=== PATIENT | female | born 1980 | race Caucasian/White ===

== ENCOUNTER 2019-11-06 05:15 | Day surgery (SDC) | payer OTHER ==
[2019-10-30 11:24] LABS: BASOPHILS % (AUTO) 0.4 % (0.0-2.0); EOSINOPHILS # (AUTO) 0.3 K/uL (0-0.4); EOSINOPHILS % (AUTO) 3.4 % (0.0-4.0); HEMATOCRIT 40.4 % (36-48); HEMOGLOBIN 13.3 g/dL (12.0-16.0); LYMPHOCYTES % (AUTO) 30.1 % (20.5-51.1); MEAN CORPUSCULAR HEMOGLOBIN 29 pg (27-31); MEAN CORPUSCULAR HGB CONC 33 g/dL (33-37); MEAN CORPUSCULAR VOLUME 87.2 fL (80-94); MONOCYTES # (AUTO) 0.7 K/uL (0.8-1.0); MONOCYTES % (AUTO) 7.1 % (1.7-9.3); NEUTROPHILS # (AUTO) 5.8 K/uL (1.8-7.7); PLATELET COUNT (AUTO) 270 K/uL (140-450); RED BLOOD CELL COUNT(AUTO) 4.64 MIL/uL (4.20-5.40); RED CELL DISTRIBUTION WIDTH 14.3 % (11.6-13.7); WHITE BLOOD COUNT (AUTO) 9.9 K/uL (4.8-10.8)
[2019-10-30 11:37] LABS: ALBUMIN 3.8 g/dL (3.4-5.0); ANION GAP 10.1 (8-16); CARBON DIOXIDE 30.7 mmol/L (21-32); CREATININE 0.7 mg/dL (0.6-1.3); POTASSIUM 3.8 mmol/L (3.5-5.1); TOTAL BILIRUBIN 0.3 mg/dL (0.0-1.0)
[~2019-11-06] VITALS: Ht 160 cm; Wt 154.2 kg
[2019-11-06] MEDS ORDERED: MIDAZOLAM 2 MG/2 ML VIAL ONE (07:20)
[2019-11-06] MEDS ORDERED: GLYCOPYRROLATE 0.2 MG/ML VIAL ONE (07:31)
[2019-11-06] MEDS ORDERED: SUCCINYLCHOLINE CHLORIDE 200 MG/10 ML VIAL IVP ONE (07:31)
[2019-11-06] MEDS ORDERED: DESFLURANE 240 ML BTL INH ONE (07:31)
[2019-11-06] MEDS ORDERED: DEXAMETHASONE 4 MG/ML VIAL ONE (07:31)
[2019-11-06] MEDS ORDERED: ROCURONIUM 50 MG/5 ML VIAL IV ONE (07:31)
[2019-11-06] MEDS ORDERED: METOPROLOL 5 MG/5 ML VIAL ONE (07:31)
[2019-11-06] MEDS ORDERED: NEOSTIGMINE 1:1000 10 MG/10 ML VIAL ONE (07:31)
[2019-11-06] MEDS ORDERED: PROPOFOL 200 MG/20 ML VIAL IV ONE (07:31)
[2019-11-06] MEDS ORDERED: ONDANSETRON 4 MG/2 ML VIAL ONE (07:31)
[2019-11-06] MEDS ORDERED: ESMOLOL 100 MG/10 ML VIAL IV ONE (07:31)
[2019-11-06] MEDS ORDERED: MEPERIDINE 25 MG/ML SYR IVP PRN (08:15)
[2019-11-06] MEDS ORDERED: BLOOD GLUCOSE MONITORING 1 DEV DEV FS SCH (08:15)
[2019-11-06] MEDS ORDERED: ONDANSETRON 4 MG/2 ML VIAL IVP PRN (08:15)
[2019-11-06] MEDS ORDERED: NACL 0.9% 1,000 ML IV SCH (08:15)
[2019-11-06] MEDS ORDERED: HYDROmorphone 1 MG/ML AMP IVP PRN (08:15)
[2019-11-06] MEDS: HYDROmorphone PFS 2 MG/ML SYR ONE ×2 (08:48→09:08)
== END 2019-11-06 10:40 | disposition home or self-care (01) ==
LOC: MDS 05:15 → MFCC 05:42 → MDS 10:40
PROVIDERS: ATTEND Obstetrics & Gynecology
DX: N92.0 Excessive and frequent menstruation with regular cycle (principal); J45.909 Unspecified asthma, uncomplicated; E03.9 Hypothyroidism, unspecified; L40.9 Psoriasis, unspecified; Z11.59 Encounter for screening for other viral diseases
CPT/HCPCS: 36415; 58563; 80053; 81025; 84702; 85025; J0330; J1100; J1170; J2250; J2405; J2704; J2710; J3490; J7030; U0003

== ENCOUNTER 2020-07-11 09:32 | Emergency (ER) | payer OTHER ==
[~2020-07-11] VITALS: Ht 175.3 cm; Wt 121.1 kg
[2020-07-11 09:42] VITALS: BP 153/83
--- NOTE | 2020-07-11 09:48 | NUR ---
PT AMBULATED TO BED 11.
--- NOTE | 2020-07-11 09:51 | NUR ---
PT AMBULATED TO RESTROOM WITH A STEADY GAIT, UNABLE TO PROVIDE UA SAMPLE AT THIS TIME.
--- NOTE | 2020-07-11 10:07 | NUR ---
DR. SUAREZ AT PT BEDSIDE FOR FURTHER EVALUATION.
[2020-07-11] MEDS ORDERED: NACL 0.9% 1,000 ML IV ONE (10:10)
--- NOTE | 2020-07-11 10:15 | NUR ---
40 YEAR OLD FEMALE COMPLAINS OF HEADACHES X 2 DAYS. PT LETHARGIC, FALLS ASLEEP DURING ASSESSMENT WHILE TALKING. PT DENIES TRAUMA. PT ALSO COMPLAINS OF SOME NAUSEA. PT AOX2 TO NAME/, BREATHING EVEN AND UNLABORED, SKIN WARM AND DRY. BED IN LOWEST POSITION, LOCKED, BED RAIL UPX1. AT BEDSIDE, STATES THAT PT IS NOT NORMALLY CONFUSED LIKE THIS. PMH - HTN ALLERGIES - NKA
--- NOTE | 2020-07-11 10:17 | NUR ---
ERMD AT BEDSIDE, STATES PT WILL BE CODE BRAIN. CT CALLED TO LICENSED EMBALMER SUPERVISOR PT FOR CODE BRAIN.
--- NOTE | 2020-07-11 10:18 | NUR ---
LABS AND CULTURES DRAWN AT PT BEDSIDE, GAVE TO ENGLISH AND READING INSTRUCTOR.
[2020-07-11] MEDS ORDERED: ONDANSETRON 4 MG/2 ML VIAL IVP ONE (10:20)
--- NOTE | 2020-07-11 10:22 | NUR ---
PT TAKEN TO CT VIA RKEESHA.
--- NOTE | 2020-07-11 10:22 | NUR ---
PT TAKEN TO CT VIA RKEESHA.
[2020-07-11 10:28] LABS: BASOPHILS # (AUTO) 0.1 K/uL (0.00-0.22); BASOPHILS % (AUTO) 0.5 % (0.0-2.0); EOSINOPHILS # (AUTO) 0.2 K/uL (0-0.4); EOSINOPHILS % (AUTO) 1.5 % (0.0-4.0); HEMATOCRIT 42.4 % (36-48); HEMOGLOBIN 13.9 g/dL (12.0-16.0); LYMPHOCYTES # (AUTO) 2.1 K/uL (2.5-16.5); LYMPHOCYTES % (AUTO) 19.3 % (20.5-51.1); MEAN CORPUSCULAR HEMOGLOBIN 29 pg (27-31); MEAN CORPUSCULAR HGB CONC 33 g/dL (33-37); MEAN CORPUSCULAR VOLUME 89.6 fL (80-94); MONOCYTES # (AUTO) 0.6 K/uL (0.8-1.0); MONOCYTES % (AUTO) 5.6 % (1.7-9.3); NEUTROPHILS # (AUTO) 8.1 K/uL (1.8-7.7); NEUTROPHILS % (AUTO) 73.1 % (42.2-75.2); PLATELET COUNT (AUTO) 251 K/uL (140-450); RED BLOOD CELL COUNT(AUTO) 4.72 MIL/uL (4.20-5.40); RED CELL DISTRIBUTION WIDTH 13.1 % (11.6-13.7); WHITE BLOOD COUNT (AUTO) 11.1 K/uL (4.8-10.8)
[2020-07-11 10:52] LABS: PROTHROMBIN TIME 10.3 secs (10.8-13.4)
[2020-07-11 10:54] LABS: ALBUMIN 4.1 g/dL (3.4-5.0); ANION GAP 9.3 (8-16); CARBON DIOXIDE 32.3 mmol/L (21-32); CREATININE 0.7 mg/dL (0.6-1.3); POTASSIUM 3.6 mmol/L (3.5-5.1); TOTAL BILIRUBIN 0.5 mg/dL (0.0-1.0)
--- NOTE | 2020-07-11 11:20 | NUR ---
PT STRAIGHT CATHED FOR 100ML CLEAR YELLOW URINE. PT TOLERATED PROCEDURE WELL.
[2020-07-11 11:49] LABS: APPEARANCE,URINE CLEAR (CLEAR); BILIRUBIN,URINE NEGATIVE (NEGATIVE); BLOOD, URINE NEGATIVE (NEGATIVE); COLOR,URINE YELLOW (YELLOW); LEUKOCYTE ESTERASE ,URINE NEGATIVE (NEGATIVE); NITRITE, URINE NEGATIVE (NEGATIVE); UGLUCOSE NEGATIVE (NEGATIVE)
[2020-07-11 12:09] LABS: BARBITURATE, URINE NEGATIVE ng/ml (NEG <=200); BENZODIAZEPINE, URINE NEGATIVE ng/mL (NEG <=200); CANNABINOID, URINE NEGATIVE ng/mL (NEG <=50); COCAINE, URINE NEGATIVE ng/mL (NEG <=300); OPIATE, URINE POSITIVE ng/mL (NEG <=2000); PHENCYCLIDINE SCREEN,URINE NEGATIVE ng/mL (NEG <=25)
[2020-07-11] MEDS ORDERED: NALOXONE 0.4 MG/ML VIAL IVP ONE (12:40)
--- NOTE | 2020-07-11 13:30 | NUR ---
PT STATES SHE FEELS MUCH BETTER AFTER NARCAN, ERMD AWARE
--- NOTE | 2020-07-11 13:57 | NUR ---
PT ABLE TO AMBULATE WITH EVEN AND STEADY GAIT, ERMD MADE AWARE
--- NOTE | 2020-07-11 14:00 | NUR ---
Patient discharged with v/s stable. Written and verbal after care instructions about tension headaches given and explained. Patient verbalized understanding. Ambulatory with steady gait. All questions addressed prior to discharge. Advised to follow up with PMD.
[2020-07-11 14:06] VITALS: BP 165/78
== END 2020-07-11 14:00 | disposition home or self-care (01) ==
LOC: MED 09:32
DX: R51.9 Headache, unspecified (principal); R41.82 Altered mental status, unspecified; R11.10 Vomiting, unspecified; R53.1 Weakness; I10 Essential (primary) hypertension
CPT/HCPCS: 36415; 70450; 71045; 80053; 80305; 81003; 82140; 83605; 84484; 84703; 85025; 85610; 87040; 87086; 93005; 96361; 96374; 96375; 99285; G0482; J2310; J2405; J7030

== ENCOUNTER 2021-03-20 12:40 | Emergency (ER) | payer OTHER ==
[~2021-03-20] VITALS: Ht 157.5 cm; Wt 155.1 kg
[2021-03-20 12:52] VITALS: BP 181/101
--- NOTE | 2021-03-20 12:57 | NUR ---
PT TO WAIT IN LOBBY.
[2021-03-20] MEDS ORDERED: BLOOD GLUCOSE MONITORING 1 DEV DEV FS STA (13:37)
--- NOTE | 2021-03-20 13:55 | NUR ---
20G IV ESTABLISHED IN L FOREARM AND BLOODWORK COLLECTED. BLOOD HANDED TO GEOLOGY TEACHER BEDSIDE
--- NOTE | 2021-03-20 14:01 | NUR ---
41 Y/O FEMALE C/O GENERAL WEAK X2HRS WITH CHEST PAIN 6/10 DESCRIBES TIGHTNESS THAT RADIATES TO HER L SHOULDER. DENIES SOB, N/V, DENIES FEVER/CHILLS. PT ALSO STATED SHE IS EXPERCINING BILATERAL LE PAIN X1 WEEK. PT STATED THE LE PAIN "FEELS LIKE A DEEP PRESSURE PAIN." CURRENT LE PAIN IS CURRENTLY 8/10. BREATH SOUNDS CLEAR. BS 166. PT PLACED ON CORE FINISHER AND PLACED INTO GOWN. PMH: ASTHMA, HTN, PSORIASIS, HYPOTHYROID NKA
--- NOTE | 2021-03-20 14:01 | NUR ---
XRAY BEDSIDE WITH PATIENT
[2021-03-20 14:09] LABS: BASOPHILS # (AUTO) 0.1 K/uL (0.00-0.22); BASOPHILS % (AUTO) 0.9 % (0.0-2.0); EOSINOPHILS # (AUTO) 0.4 K/uL (0-0.4); EOSINOPHILS % (AUTO) 3.7 % (0.0-4.0); HEMATOCRIT 39.5 % (36-48); HEMOGLOBIN 13.3 g/dL (12.0-16.0); LYMPHOCYTES # (AUTO) 2.6 K/uL (2.5-16.5); LYMPHOCYTES % (AUTO) 25.6 % (20.5-51.1); MEAN CORPUSCULAR HEMOGLOBIN 29 pg (27-31); MEAN CORPUSCULAR HGB CONC 34 g/dL (33-37); MEAN CORPUSCULAR VOLUME 87.1 fL (80-94); MONOCYTES # (AUTO) 0.8 K/uL (0.8-1.0); MONOCYTES % (AUTO) 7.4 % (1.7-9.3); NEUTROPHILS # (AUTO) 6.3 K/uL (1.8-7.7); NEUTROPHILS % (AUTO) 62.4 % (42.2-75.2); PLATELET COUNT (AUTO) 256 K/uL (140-450); RED BLOOD CELL COUNT(AUTO) 4.54 MIL/uL (4.20-5.40); RED CELL DISTRIBUTION WIDTH 13.5 % (11.6-13.7); WHITE BLOOD COUNT (AUTO) 10.2 K/uL (4.8-10.8)
[2021-03-20 14:31] LABS: ALBUMIN 3.7 g/dL (3.4-5.0); CARBON DIOXIDE 31.4 mmol/L (21-32); CREATININE 0.5 mg/dL (0.6-1.3); POTASSIUM 3.4 mmol/L (3.5-5.1); TOTAL BILIRUBIN 0.3 mg/dL (0.0-1.0)
--- NOTE | 2021-03-20 14:36 | NUR ---
DR. IRAHETA BEDSIDE EVALUATING PT
--- NOTE | 2021-03-20 15:01 | NUR ---
US BEDSIDE WITH PATIENT
[2021-03-20 16:40] VITALS: BP 129/69
--- NOTE | 2021-03-20 16:40 | NUR ---
Patient discharged with v/s stable. Written and verbal after care instructions given and explained. Patient verbalized understanding. Ambulatory with steady gait. All questions addressed prior to discharge. Advised to follow up with PMD.
== END 2021-03-20 16:40 | disposition home or self-care (01) ==
LOC: MED 12:40
DX: M79.661 Pain in right lower leg (principal); R07.89 Other chest pain; J45.909 Unspecified asthma, uncomplicated; I10 Essential (primary) hypertension; E03.9 Hypothyroidism, unspecified
CPT/HCPCS: 36415; 71045; 80053; 84484; 85025; 93005; 93971; 99285; Q0092